=== PATIENT | male | born 1940 | race Caucasian/White ===

== ENCOUNTER → 2019-03-31 | Day surgery (SDC) | payer BC ==
[2019-03-27 11:17] LABS: BASOPHILS # (AUTO) 0.1 (0.0-0.1); BASOPHILS % 0.9 % (0.0-1.0); EOSINOPHILS # (AUTO) 0.3 (0.0-0.4); EOSINOPHILS % 4.9 % (0.0-6.0); HEMATOCRIT 37.5 % (38.2-49.6); HEMOGLOBIN 12.4 g/dL (14.0-18.0); LYMPHOCYTES # (AUTO) 1.3 (1.0-3.2); LYMPHOCYTES % 24.3 % (18.0-39.1); MEAN CORPUSCULAR HGB CONC 33.1 g/dL (31-35); MEAN CORPUSCULAR VOLUME 96.9 fL (81-99); MONOCYTES # (AUTO) 0.6 (0.2-0.8); MONOCYTES % 11.4 % (4.4-11.3); NEUTROPHILS # (AUTO) 3.1 (2.1-6.9); NEUTROPHILS % 56.7 % (38.7-80.0); PLATELET COUNT 136 x10e3/uL (140-360); RED BLOOD COUNT 3.87 x10e6/uL (4.3-5.7); RED CELL DISTRIBUTION WIDTH 14.2 % (11.7-14.4)
[~2019-03-31] MED LIST: ARICEPT5 MG PO; ASPIR 8181 MG PO; ATROPINE SULFATE 1 MG/ML VIAL ONE; BYSTOLIC10 MG PO; BYSTOLIC5 MG PO; CENTRUM SILVER1 EAC1 PO; CLONIDINE HCL0.1 MG PO; CRESTOR10 MG PO; DICLOFENAC PO; DOCUSATE SODIU100 MG PO; EPHEDRINE SULFATE INJ 50 MG/10 ML SYR ONE; EPINEPHRINE HCL 1:1000 1ML 1 MG/ML AMP ONE; FENTANYL CITRATE/PF 100MCG/2 ML INJ ONE; FINASTERIDE5 MG PO; GABAPENTIN300 MG PO; GLUCAGON FOR INJ 1 MG VIAL ONE; HYDROCHLOROTHIA25 MG PO; IMODIUM2 MG PO; IRBESARTAN300 MG PO; KETAMINE HCL INJ 50 MG/ML 10 ML VIAL ONE; LACTULOSE20 GM/30 M PO; LEXAPRO10 MG PO; LIDOCAINE HCL 2% LOCAL INJ 5 ML SDV VIAL INJ ONE; LOVAZA1 GM PO; MUCINEX DM ER1 EACH PO; MULTI-VITAMIN1 EACH PO; NORCO 7.5-3251 EACH PO; NORVASC10 MG PO; OCUVITE LUTEIN1 EACH PO; OCUVITE TABLET1 EAC1 PO; OMEGA 3 1,0001 EACH PO; POTASSIUM CITR10 MEQ PO; PROPOFOL IV EMULSION 10 MG/ML 50 ML VIAL ONE; QUETIAPINE FUM100 MG PO; STRESS B WITH1 EAC2 PO; TRICOR145 MG PO; TYLENOL PO; ULTRAM 50MG50 MG PO; VIT D PO; [UNRECOGNIZED DRUG - OTHER] PO
[2019-03-31 10:00] VITALS: BP 164/84
--- NOTE | 2019-03-31 14:37 | Operative Report ---
DATE OF PROCEDURE: 03/31/2019 SURGEON: Ruiz Feng MD PROCEDURE: Colonoscopy. INDICATION FOR COLONOSCOPY: Surveillance colonoscopy, personal history of colon polyps, history of bright red blood per rectum. MEDICATIONS: The patient was done under MAC, please see anesthesiologist's note. PROCEDURE IN DETAIL: With the patient in left lateral decubitus position, flexible fiberoptic Olympus colonoscope was inserted into the rectum with ease and advanced all the way to the cecum. Prep overall was suboptimal, but visualization was fair. The scope was then withdrawn slowly and whatever was visualized of the mucosa overlying the cecum, ascending colon, transverse, descending, and sigmoid grossly other than for some diverticular disease appeared to be within normal limits. Anastomosis was noted at 30 cm from the anal verge and was intact. The rectum grossly appeared to be within normal limits. The scope was then retroflexed into the distal rectum and small internal hemorrhoids were noted, none of which was actively bleeding. The scope was then straightened out, it was subsequently withdrawn and the anal fissure was noted in way out without active bleeding. The patient tolerated procedure well. IMPRESSION: 1. Suboptimal prep. 2. Diverticulosis. 3. Anastomosis intact at approximately 30 cm from the anal verge. 4. Internal hemorrhoids, none actively bleeding. 5. Anal fissure. PLAN: Initiate high-fiber, low-fat diet. Initiate high-fiber supplement. Start Anucort-HC suppositories b.i.d. x10 days then p.r.n. No followup colonoscopy is necessary. Ruiz Feng MD [facility] [place] /[id number] cc: Ziyad Mederos MD
--- OUTSIDE RECORDS SUMMARY | 2019-04-02 12:12 | XMS REPORT | Clinical Summary ---
Author Author [facility] Address Unknown Phone Unavailable Care Team Providers Care Manager Office Name Role Phone Remy Rodriguez MD PCP Allergies No Known Allergies Medications End Date Status Medication Sig Dispensed Refills Start Date Active cholecalciferol, vitamin Take 2,000 0 D3, (VITAMIN D3) 2,000 Units by unit tablet mouth every morning. Active diclofenac-misoprostol Take 1 tablet 0 (ARTHROTEC 50) 50-200 by mouth 2 mg-mcg EC tablet (two) times a day. Active omega-3 acid ethyl esters Take 1 g by 0 (LOVAZA) 1 gram capsule mouth 2 (two) times a day. Active traMADol (ULTRAM) 50 mg Take 50 mg by 0 tablet mouth 3 (three) times a day. Pt takes at 0800, 1400 and 2000 Active rosuvastatin (CRESTOR) 5 Take 5 mg by 0 MG tablet mouth nightly. Active aspirin 81 mg chewable Take 81 mg by 0 tablet mouth every morning. Active nebivolol (BYSTOLIC) 10 Take 10 mg by 0 MG tablet mouth every morning. Active folic Take 1 tablet 0 acid/multivit-min/lutein by mouth (CENTRUM SILVER ORAL) every morning. Active escitalopram (LEXAPRO) 10 Take 10 mg by 0 MG tablet mouth every morning. Active vit A,C and Take 1 tablet 0 A-xuolcn-egbzhejl by mouth (OCUVITE WITH LUTEIN) every 1,000 unit-200 mg-60 morning. unit-2 mg tablet per tablet Active fluticasone (FLONASE) 50 1 spray by 0 mcg/actuation nasal spray Each Nare route every morning. Active hydroCHLOROthiazide Take 12.5 mg 0 (MICROZIDE) 12.5 mg by mouth capsule every morning. Active gabapentin (NEURONTIN) Take 900 mg 0 300 mg capsule by mouth nightly. Active gabapentin (NEURONTIN) Take 300 mg 0 300 mg capsule by mouth every morning. Active acetaminophen (TYLENOL) Take 1,000 mg 0 500 MG tablet by mouth every 12 (twelve) hours as needed for mild pain. Active clonIDINE (CATAPRES) 0.1 Take 0.1 mg 0 MG tablet by mouth every 6 (six) hours as needed for high blood pressure. If SBP > 170 Active HYDROcodone-acetaminophen Take 1 tablet 0 (NORCO) 7.5-325 mg per by mouth tablet every 6 (six) hours as needed for moderate pain. Active lactulose 10 gram/15 mL Take 10 g by 0 (15 mL) solution mouth every 12 (twelve) hours as needed. Active zolpidem (AMBIEN) 5 MG Take 5 mg by 0 tablet mouth nightly as needed for sleep. Active potassium chloride Take 10 mEq 0 (K-DUR,KLOR-CON) 10 MEQ by mouth CR tablet daily. Active docusate sodium (COLACE) Take 100 mg 0 100 MG capsule by mouth every morning. Active finasteride (PROSCAR) 5 Take 5 mg by 0 mg tablet mouth every morning. Active QUEtiapine (SEROquel) 25 Take 25 mg by 0 MG tablet mouth 2 (two) times a day. Active multivitamin, stress Take 1 tablet 0 formula (STRESS FORMULA) by mouth tablet daily. 07/01/2018 Discontinued celecoxib (CeleBREX) 200 Take 200 mg 0 MG capsule by mouth 2 (two) times a day. 07/01/2018 Discontinued furosemide (LASIX) 20 mg Take 20 mg by 0 tablet mouth every morning. 04/24/2018 cephalexin (KEFLEX) 500 Take 1 40 capsule 0 04/14/201 MG capsule capsule (500 8 mg total) by mouth 4 (four) times a day for 10 days. 07/01/2018 Discontinued tamsulosin (FLOMAX) 0.4 Take 0.4 mg 0 mg capsule by mouth daily. 07/11/2018 cefpodoxime (VANTIN) 200 Take 1 tablet 20 tablet 0 201 MG tablet (200 mg 8 total) by mouth 2 (two) times a day for 10 days. 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 Urinary retention 05/04/2018 Bilateral hydronephrosis 05/04/2018 NABIL (acute kidney injury) 04/12/2018 Encounters Care Team Description Date Type Specialty Jamie Hamilton MD Urinary tract infection associated with indwelling urethral catheter, initial encounter (HCC) (Primary Dx); Complication of Dobbins catheter, initial encounter (HCC) 07/01/2018 Emergency Emergency Medicine Golden Ramos MD Neurogenic bladder (Primary Dx); BPH with urinary obstruction; Urinary retention; Bilateral hydronephrosis 05/04/2018 Office Visit Urology Golden Ramos MD 04/27/2018 Telephone Urology Corrie Ratliff MD Yerramadha, Muralidhar Reddy, MD Pyelonephritis (Primary Dx); NABIL (acute kidney injury); Acute bilateral obstructive uropathy; Pleural effusion; Late onset Alzheimer's disease with behavioral disturbance; Urinary retention due to benign prostatic hyperplasia 04/12/2018 [facility] General Surgery - Encounter 04/14/2018 after 04/01/2018 Social History Date Tobacco Use Types Packs/Day Years Used Never Smoker Smokeless Tobacco: Never Used Alcohol Use Drinks/Week oz/Week Comments No Sex Assigned at Date Recorded Not on file Industry Job Start Date Occupation Not on file Not on file Not on file Travel End Travel History Travel Start No recent travel history available. Last Filed Vital Signs Time Taken Vital Sign Reading 07/01/2018 10:00 PM CDT Blood Pressure 110/56 07/01/2018 10:00 PM CDT Pulse 62 07/01/2018 2:59 PM CDT Temperature 37.1 C (98.8 F) 07/01/2018 10:00 PM CDT Respiratory Rate 18 07/01/2018 10:00 PM CDT Oxygen Saturation 96% - Inhaled Oxygen - Concentration 04/12/2018 9:29 AM CDT Weight 83 kg (183 lb) 07/01/2018 2:59 PM CDT Height 170.2 cm (5' 7") 04/12/2018 9:29 AM CDT Body Mass Index 27.83 Plan of Treatment Health Maintenance Due Date Last Done Comments SHINGLES VACCINES (#1) 12/04/1991 65+ PNEUMOCOCCAL VACCINE 2006 (1 of 2 - PCV13) INFLUENZA VACCINE 04/26/2019 Procedures Comments Procedure Name Priority Date/Time Associated Diagnosis POC GLUCOSE Routine 07/01/2018 6:[address] RENAL STONE PROTOCOL STAT 07/01/2018 6:21 PM CDT XR CHEST 1 VW STAT 07/01/2018 5:56 PM CDT URINALYSIS SCREEN AND STAT 07/01/2018 MICROSCOPY, WITH REFLEX 4:58 PM CDT TO CULTURE GRAM STAIN STAT 07/01/2018 4:58 PM CDT URINE CULTURE STAT 07/01/2018 4:58 PM CDT ESTIMATED GFR STAT 07/01/2018 4:55 PM CDT COMPREHENSIVE METABOLIC STAT 07/01/2018 PANEL 4:55 PM CDT HC COMPLETE BLD COUNT STAT 07/01/2018 W/AUTO DIFF 4:55 PM CDT POC GLUCOSE Routine 04/14/2018 6:09 AM CDT ZZESTIMATED GFR Routine 04/14/2018 5:27 AM CDT HC COMPLETE BLD COUNT Routine 04/14/2018 W/AUTO DIFF 5:27 AM CDT BASIC METABOLIC PANEL Routine 04/14/2018 5:27 AM CDT POC GLUCOSE Routine 04/13/2018 8:37 PM CDT POC GLUCOSE Routine 04/13/2018 4:27 PM CDT POC GLUCOSE Routine 04/13/2018 12:11 PM CDT POC GLUCOSE Routine 04/13/2018 5:42 AM CDT POC GLUCOSE Routine 04/12/2018 8:54 PM CDT POC GLUCOSE Routine 04/12/2018 6:06 PM CDT XR CHEST 1 VW PORTABLE STAT 04/12/2018 12:30 PM CDT URINALYSIS SCREEN AND STAT 04/12/2018 MICROSCOPY, WITH REFLEX 12:15 PM CDT TO CULTURE GRAM STAIN STAT 04/12/2018 12:15 PM CDT URINE CULTURE STAT 04/12/2018 12:[address] RENAL STONE PROTOCOL STAT 04/12/2018 11:06 AM CDT ZZESTIMATED GFR STAT 04/12/2018 9:54 AM CDT COMPREHENSIVE METABOLIC STAT 04/12/2018 PANEL 9:54 AM CDT HC COMPLETE BLD COUNT STAT 04/12/2018 W/AUTO DIFF 9:54 AM CDT after 04/01/2018 Results * POC glucose (07/01/2018 6:48 PM CDT) Only the most recent of 8 results within the time period is included. POC glucose 127 (H) 65 - 99 mg/dL [facility] Comment: DEPARTMENT OF Meter ID: [id number] PATHOLOGY AND Wrapper Layer: Alfredo Cartagena GENOMIC MEDICINE Specimen Performing Organization Address City/State/Zipcode Phone Number [facility] [place] [address] [place] [address] PATHOLOGY AND GENOMIC MEDICINE * CT Renal Stone Protocol (07/01/2018 6:21 PM CDT) Only the most recent of 2 results within the time period is included. Specimen Narrative Performed At Examination: CT RENAL STONE PROTOCOL RADIANT Clinical history: hematuria Comparison: April 12, 2018 Technique: Multiple computerized axial tomographic images were obtained of the abdomen and pelvis without IV or enteric contrast according to renal calculus protocol.Sagittal and coronal computerized reformatted images were also obtained. CT scans are performed using radiation dose reduction techniques.Technical factors are evaluated and adjusted to ensure appropriate moderation of exposure.Automated dose management technology is applied to adjust radiation exposure while achieving a diagnostic quality image. IMPRESSION: Atelectasis is present within the right lung base. The heart is moderately enlarged. Calcified atherosclerotic coronary arterial plaque is present. Abdomen: 1.Mild left and borderline right hydronephrosis and hydroureter have markedly improved since the previous examination and are likely related to the patient's history of previous bladder outlet obstruction, as there is no evidence of renal or ureteral calculus. 2.Limited evaluation of the unenhanced liver, spleen, adrenal glands, and pancreas is otherwise grossly unremarkable, though not considered to diagnostic standards given specialized noncontrast protocol. 3.The pancreatic and biliary ducts are nondilated. The abdominal aorta is normal caliber. The bowel is not dilated, though cannot be formally evaluated given absence of enteric contrast. There appear to be a few loops of nondistended small bowel within the anterior abdomen which demonstrate diffuse wall thickening suggestive of an enteritis, though findings are nonspecific. 4.Anterior abdominal wall hernia repair remains without residual or recurrent hernia. Pelvis: 1. A Dobbins catheter is present within a nondistended bladder. 2. There is no acute osseous pathology. Marked compression deformity of the L3 and L5 vertebral bodies is similar to the prior examination. CONCLUSION: 1. Markedly improved hydronephrosis status post bladder decompression when compared to the previous examination. No evidence of renal or ureteral calculus. 2. Possible enteritis is poorly demonstrated by noncontrast technique. 3. Please see above. [id number] Procedure Note Hm Interface, Radiology Results Incoming - 07/01/2018 6:36 PM CDT Examination: CT RENAL STONE PROTOCOL Clinical history: hematuria Comparison: April 12, 2018 Technique: Multiple computerized axial tomographic images were obtained of the abdomen and pelvis without IV or enteric contrast according to renal calculus protocol.Sagittal and coronal computerized reformatted images were also obtained. CT scans are performed using radiation dose reduction techniques. Technical factors are evaluated and adjusted to ensure appropriate moderation of exposure. Automated dose management technology is applied to adjust radiation exposure while achieving a diagnostic quality image. IMPRESSION: Atelectasis is present within the right lung base. The heart is moderately enlarged. Calcified atherosclerotic coronary arterial plaque is present. Abdomen: 1. Mild left and borderline right hydronephrosis and hydroureter have markedly improved since the previous examination and are likely related to the patient's history of previous bladder outlet obstruction, as there is no evidence of renal or ureteral calculus. 2. Limited evaluation of the unenhanced liver, spleen, adrenal glands, and pancreas is otherwise grossly unremarkable, though not considered to diagnostic standards given specialized noncontrast protocol. 3. The pancreatic and biliary ducts are nondilated. The abdominal aorta is normal caliber. The bowel is not dilated, though cannot be formally evaluated given absence of enteric contrast. There appear to be a few loops of nondistended small bowel within the anterior abdomen which demonstrate diffuse wall thickening suggestive of an enteritis, though findings are nonspecific. 4. Anterior abdominal wall hernia repair remains without residual or recurrent hernia. Pelvis: 1. A Dobbins catheter is present within a nondistended bladder. 2. There is no acute osseous pathology. Marked compression deformity of the L3 and L5 vertebral bodies is similar to the prior examination. CONCLUSION: 1. Markedly improved hydronephrosis status post bladder decompression when compared to the previous examination. No evidence of renal or ureteral calculus. 2. Possible enteritis is poorly demonstrated by noncontrast technique. 3. Please see above. [id number] Performing Organization Address [facility] Phone Number [facility] [address] [place] [address] * XR Chest 1 Vw (07/01/2018 5:56 PM CDT) Specimen Narrative Performed At EXAMINATION: XR CHEST 1 [facility] CLINICAL HISTORY: reported fever COMPARISON:04/12/2018 chest x-ray. IMPRESSION: Unchanged small right greater than left pleural effusions. Bibasilar atelectasis. No consolidation. Mildly enlarged cardiac silhouette. No acute osseous abnormalities. [facility]-[id number] Procedure Note Interface, Radiology Results Incoming - 07/01/2018 6:02 PM CDT EXAMINATION: XR CHEST 1 VW CLINICAL HISTORY: reported fever COMPARISON: 04/12/2018 chest x-ray. IMPRESSION: Unchanged small right greater than left pleural effusions. Bibasilar atelectasis. No consolidation. Mildly enlarged cardiac silhouette. No acute osseous abnormalities. [facility]-[id number] Performing Organization Address [facility] Phone Number [facility] [address] [place] [address] * Urinalysis screen and microscopy, with reflex to culture (07/01/2018 4:58 PM CDT) Only the most recent of 2 results within the time period is included. Specimen site Catheterized [facility] DEPARTMENT OF PATHOLOGY AND GENOMIC MEDICINE Color, UA Yellow [facility] DEPARTMENT OF PATHOLOGY AND GENOMIC MEDICINE Appearance, UA Cloudy [facility] DEPARTMENT OF PATHOLOGY AND GENOMIC MEDICINE Specific 1.009 1.001 - 1.035 [facility] gravity, DEPARTMENT OF PATHOLOGY AND GENOMIC MEDICINE pH, UA 6.0 5.0 - 8.5 [facility] DEPARTMENT OF PATHOLOGY AND GENOMIC MEDICINE Protein, UA 2+ (A) Negative [facility] DEPARTMENT OF PATHOLOGY AND GENOMIC MEDICINE Glucose, UA Negative Negative [facility] DEPARTMENT OF PATHOLOGY AND GENOMIC MEDICINE Ketones, UA Negative Negative [facility] DEPARTMENT OF PATHOLOGY AND GENOMIC MEDICINE Bilirubin, UA Negative Negative [facility] DEPARTMENT OF PATHOLOGY AND GENOMIC MEDICINE Blood, UA Moderate (A) Negative [facility] DEPARTMENT OF PATHOLOGY AND GENOMIC MEDICINE Nitrite, UA Negative Negative [facility] DEPARTMENT OF PATHOLOGY AND GENOMIC MEDICINE Urobilinogen, Negative <2.0 [facility] DEPARTMENT OF PATHOLOGY AND GENOMIC MEDICINE Leukocyte Large (A) Negative [facility] esterase, DEPARTMENT OF PATHOLOGY AND GENOMIC MEDICINE WBC, UA 61-80 (H) 0 - 1 /HPF [facility] DEPARTMENT OF PATHOLOGY AND GENOMIC MEDICINE RBC, UA 61-80 (H) 0 - 5 /HPF [facility] DEPARTMENT OF PATHOLOGY AND GENOMIC MEDICINE Bacteria, UA Trace None seen [facility] DEPARTMENT OF PATHOLOGY AND GENOMIC MEDICINE Yeast, UA None seen [facility] DEPARTMENT OF PATHOLOGY AND GENOMIC MEDICINE Yeast with None seen [facility] pseudohyphae, DEPARTMENT OF UA PATHOLOGY AND GENOMIC MEDICINE Specimen Urine Performing Organization Address City/[facility]/Zipcode Phone Number [facility] [place] [address] [place] [address] PATHOLOGY AND GENOMIC MEDICINE * Gram stain (07/01/2018 4:58 PM CDT) Only the most recent of 2 results within the time period is included. Gram stain Many WBC's [facility] DEPARTMENT result Occasional Gram positive cocci OF PATHOLOGY in pairs AND GENOMIC Comment: MEDICINE Specimen Information Specimen Source: Urine Specimen Site: Catheterized Specimen Urine - Catheterized Performing Organization Address City/State/Zipcode Phone Number [facility] DEPARTMENT OF [address] [place] [address] PATHOLOGY AND GENOMIC MEDICINE * Urine culture (07/01/2018 4:58 PM CDT) Only the most recent of 2 results within the time period is included. Urine culture Mixed Gram positive miriam [facility] DEPART[facility] isolate 10-3 cfu/ml OF PATHOLOGY (A) AND GENOMIC Comment: MEDICINE Specimen Information Specimen Source: Urine Specimen Site: Catheterized Specimen Urine - Catheterized Performing Organization Address City/State/Zipcode Phone Number [facility] DEPARTMENT OF [address] [place] [address] PATHOLOGY AND GENOMIC MEDICINE * Estimated GFR (07/01/2018 4:55 PM CDT) [facility] Estimated GFR 48 (A) mL/min/1.73 m2 [facility] Comment: [facility] AND rpretation GENOMIC MEDICINE >=90 Normal or high G2 60-89Mildly decreased [id number] Mildly to moderately decreased B2h05-58 Moderately to severely decreased G4 15-29Severely decreased G5 <15Kidney failure The eGFR was calculated using the Chronic Kidney Disease Epidemiology Collaboration (CKD-EPI) equation. Interpretation is based on recommendations of the National Kidney Foundation-Kidney Disease Outcomes Quality Initiative (NKF-KDOQI) published in 2014. Specimen Plasma specimen Performing Organization Address City/State/Zipcode Phone Number [facility] [address] [place] [address] PATHOLOGY AND [facility] * CBC with platelet and differential (07/01/2018 4:55 PM CDT) Only the most recent of 3 results within the time period is included. [facility] WBC 11.27 (H) 4.50 - 11.00 k/uL [facility] DEPARTMENT OF PATHOLOGY AND GENOMIC MEDICINE RBC 3.56 (L) 4.40 - 6.00 m/uL [facility] PATHOLOGY AND GENOMIC MEDICINE HGB 11.5 (L) 14.0 - 18.0 g/dL [facility] DEPARTMENT PATHOLOGY AND GENOMIC MEDICINE HCT 34.6 (L) 41.0 - 51.0 % [facility] DEPARTMENT OF PATHOLOGY AND GENOMIC MEDICINE MCV 97.2 82.0 - 100.0 fL [facility] DEPARTMENT OF PATHOLOGY AND GENOMIC MEDICINE MCH 32.3 27.0 - 34.0 pg [facility] DEPARTMENT OF PATHOLOGY AND GENOMIC MEDICINE MCHC 33.2 31.0 - 37.0 g/dL [facility] DEPARTMENT OF PATHOLOGY AND GENOMIC MEDICINE RDW - SD 51.8 37.0 - 55.0 fL [facility] DEPARTMENT OF PATHOLOGY AND GENOMIC MEDICINE MPV 9.5 8.8 - 13.2 fL [facility] DEPARTMENT OF PATHOLOGY AND GENOMIC MEDICINE Platelet count 143 (L) 150 - 400 k/uL [facility] DEPARTMENT OF PATHOLOGY AND GENOMIC MEDICINE Nucleated RBC 0.00 /100 WBC [facility] DEPARTMENT OF PATHOLOGY AND GENOMIC MEDICINE Neutrophils 74.8 (H) 39.0 - 69.0 % [facility] DEPARTMENT OF PATHOLOGY AND GENOMIC MEDICINE Lymphocytes 12.4 (L) 25.0 - 45.0 % [facility] DEPARTMENT OF PATHOLOGY AND GENOMIC MEDICINE Monocytes 9.5 0.0 - 10.0 % [facility] DEPARTMENT OF PATHOLOGY AND GENOMIC MEDICINE Eosinophils 2.0 0.0 - 5.0 % [facility] DEPARTMENT OF PATHOLOGY AND GENOMIC MEDICINE Basophils 0.3 0.0 - 1.0 % [facility] DEPARTMENT OF PATHOLOGY AND GENOMIC MEDICINE Specimen Blood Performing Organization Address City/State/Zipcode Phone Number [facility] [address] [place] [address] PATHOLOGY AND GENOMIC MEDICINE * Comprehensive metabolic panel (07/01/2018 4:55 PM CDT) Only the most recent of 2 results within the time period is included. Sodium 142 135 - 148 mEq/L [facility] DEPARTMENT OF PATHOLOGY AND GENOMIC MEDICINE Potassium 4.1 3.5 - 5.0 mEq/L [facility] DEPARTMENT OF PATHOLOGY AND GENOMIC MEDICINE Chloride 102 98 - 112 mEq/L [facility] DEPARTMENT OF PATHOLOGY AND GENOMIC MEDICINE CO2 27 24 - 31 mEq/L [facility] DEPARTMENT OF PATHOLOGY AND GENOMIC MEDICINE Anion gap 13@ANIO 7 - 15 mEq/L [facility] DEPARTMENT OF PATHOLOGY AND GENOMIC MEDICINE BUN 29 (H) 8 - 23 mg/dL [facility] DEPARTMENT OF PATHOLOGY AND GENOMIC MEDICINE Creatinine 1.40 (H) 0.70 - 1.20 mg/dL [facility] DEPARTMENT OF PATHOLOGY AND GENOMIC MEDICINE Glucose 122 (H) 65 - 99 mg/dL [facility] DEPARTMENT OF PATHOLOGY AND GENOMIC MEDICINE Calcium 9.5 8.8 - 10.2 mg/dL [facility] DEPARTMENT OF PATHOLOGY AND GENOMIC MEDICINE Protein 7.4 6.3 - 8.3 g/dL [facility] Comment: DEPARTMENT OF [place] PATHOLOGY AND 4.6-7.0 g/dL GENOMIC 1 MEDICINE week 4.4-7.6 g/dL 7 months-1year 5.1-7.3 g/dL 1-2 years5.6-7 .5 g/dL >3 years6.0-8 .0 g/dL 18-150 6.3-8.3 g/dL Albumin 4.5 3.5 - 5.0 g/dL [facility] DEPARTMENT OF PATHOLOGY AND GENOMIC [facility] A/G ratio 1.6 0.7 - 3.8 [facility] DEPARTMENT OF PATHOLOGY AND GENOMIC MEDICINE Alkaline 60 40 - 129 U/L [facility] phosphatase DEPARTMENT OF PATHOLOGY AND GENOMIC MEDICINE AST 15 10 - 50 U/L [facility] DEPARTMENT OF PATHOLOGY AND GENOMIC MEDICINE ALT 13 5 - 50 U/L [facility] OF PATHOLOGY AND GENOMIC MEDICINE Total bilirubin 0.5 0.0 - 1.2 mg/dL [facility] DEPARTMENT OF PATHOLOGY AND GENOMIC [facility] Specimen Plasma specimen Performing Organization Address [facility] Phone Number [address] [place] [address] PATHOLOGY [facility] * Estimated GFR (04/14/2018 5:27 AM CDT) Only the most recent of 2 results within the time period is included. [facility] GFR Non Af Amer 37 (A) mL/min/1.73 m2 [facility] OF PATHOLOGY AND GENOMIC MEDICINE GFR Af Amer 45 (A) mL/min/1.73 m2 [facility] Comment: DEPARTMENT OF Chronic kidney disease: <60 PATHOLOGY AND mL/min/1.73m2 GENOMIC Kidney failure: <15 MEDICINE mL/min/1.73m2 The estimated GFR is calculated from the IDMS-traceable Modification of Diet in Renal Disease Equation. The accuracy of the calculation is poor when the creatinine is normal. Calculated values >90 mL/min/1.73m2 are not reported. This equation has not been validated in children (<18 years), women, the elderly (>70 years), or ethnic groups other than Caucasians and Americans. Specimen Plasma specimen Performing Organization Address [facility] Phone Number [address] [place] [address] PATHOLOGY [facility] * Basic metabolic panel (04/14/2018 5:27 AM CDT) [facility] Sodium 141 135 - 148 mEq/L [facility] DEPARTMENT OF PATHOLOGY AND GENOMIC MEDICINE Potassium 3.7 3.5 - 5.0 mEq/L [facility] DEPARTMENT OF PATHOLOGY AND GENOMIC MEDICINE Chloride 104 98 - 112 mEq/L [facility] DEPARTMENT OF PATHOLOGY AND GENOMIC MEDICINE CO2 26 24 - 31 mEq/L [facility] DEPARTMENT OF PATHOLOGY AND GENOMIC MEDICINE Anion gap 11@ANIO 7 - 15 mEq/L [facility] DEPARTMENT OF PATHOLOGY AND GENOMIC MEDICINE BUN 32 (H) 8 - 23 mg/dL [facility] DEPARTMENT OF PATHOLOGY AND GENOMIC MEDICINE Creatinine 1.8 (H) 0.7 - 1.2 mg/dL [facility] DEPARTMENT OF PATHOLOGY AND GENOMIC MEDICINE Glucose 82 65 - 99 mg/dL [facility] DEPARTMENT OF PATHOLOGY AND GENOMIC MEDICINE Calcium 8.4 (L) 8.8 - 10.2 mg/dL [facility] DEPARTMENT OF PATHOLOGY AND GENOMIC MEDICINE Specimen Plasma specimen Performing Organization Address City/State/Zipcode Phone Number [facility] DEPARTMENT [address] [place] [address] PATHOLOGY AND GENOMIC MEDICINE * XR Chest 1 Vw Portable (04/12/2018 12:30 PM CDT) Specimen Narrative Performed At EXAMINATION:XR CHEST 1 VW PORTABLE [facility] CLINICAL HISTORY:R sided pneumonia COMPARISON:None. IMPRESSION: 1.Trace right pleural effusion and likely basilar subsegmental atelectasis versus possible infiltrate. 2.Top normal heart size. 3.No acute osseous abnormality. [id number] Procedure Note Hm Interface, Radiology Results Incoming - 04/12/2018 12:46 PM CDT EXAMINATION: XR CHEST 1 VW PORTABLE CLINICAL HISTORY: R sided pneumonia COMPARISON: None. IMPRESSION: 1. Trace right pleural effusion and likely basilar subsegmental atelectasis versus possible infiltrate. 2. Top normal heart size. 3. No acute osseous abnormality. [id number] Performing Organization Address [facility] Phone Number [facility] [address] [place] [address] after 04/01/2018 Insurance Type Payer Benefit Subscriber ID Effective Phone Address Plan / Dates Group PPO BCBS BCBS xxxxxxxxxxxx 2002-P CHOICE resent PPO/CHARLI L EMPL PPO Medicare MEDICARE MEDICARE xxxxxxxxxx [id number] [facility] PART [facility] resent [address] Advance Directives Patient has advance care planning documents, and code status on file. For more i nformation, please contact: Germain Rodriguez [address] [place] [address] Date Inactivated Comments Code Status Date Activated 04/14/2018 4:32 PM DNR 04/12/2018 2:58 PM Code Status decision reached by: Patient by means of Directive
--- OUTSIDE RECORDS SUMMARY | 2019-04-02 12:13 | XMS REPORT | Continuity of Care Document ---
Author Author [facility] Address Unknown Phone Unavailable Care Team Providers Care Marketing Copywriter Name Role Phone [employer] Information [employer] Specialty Proteins Unavailable Unavailable Problems Problem Status Onset Date Classification Date Reported Comments Source Tuberculosis screening 07/14/2017 Diagnosis 07/14/2017 [facility] Medications Medication Details Route Status Patient Instructions Ordering Provider Order Date Source Amlodipine 10 MG Oral Tablet amlodipine 10 mg tablet TK 1 T PO QD Active [facility] nebivolol 10 MG Oral Tablet [Bystolic] Bystolic 10 mg tablet TK 1 T PO QD Active [facility] Rosuvastatin calcium 5 MG Oral Tablet rosuvastatin 5 mg tablet TK 1 T PO QD HS Active [facility] Purified Protein Derivative of Tuberculin 50 UNT/ML Injectable Solution [Tubersol] Tubersol 5 tub. unit/0.1 mL intradermal injection solution Inject 0.1 mL by intradermal route. Active [facility] Allergies, Adverse Reactions, Alerts No Known Medication Allergies Immunizations No Data Provided for This Section Results No Data Provided for This Section Pathology Reports No Data Provided for This Section Diagnostic Reports No Data Provided for This Section Consultation Notes No Data Provided for This Section Discharge Summaries No Data Provided for This Section History and Physicals No Data Provided for This Section Vital Signs No Data Provided for This Section Encounters Location Location Details Encounter Type Encounter Number Reason For Visit Attending Provider ADM Date DC Date Status Source [place] - [facility] - [id number]_IrmeqounCarla Huntley, [facility]: [address] [place] [address], Ph. [id number] Diamond Huntley 07/14/2017 [facility] Procedures No Data Provided for This Section Assessment and Plan No Data Provided for This Section Plan of Care No Data Provided for This Section Social History No Data Provided for This Section Family History No Data Provided for This Section Advance Directives No Data Provided for This Section Functional Status No Data Provided for This Section
--- OUTSIDE RECORDS SUMMARY | 2019-04-02 12:13 | XMS REPORT | Encounter Summary ---
Author Organization Unknown Address [address] [place] [id number] Phone [phone] Reason for Visit Screening - TB Instructions 1. Tuberculosis screening Tubersol 5 tub. unit/0.1 mL intradermal injection solution PPD (purified protein derivative), skin test - Patient was advised to follow-up with [facility] within 48-72 hours. Discussion Note Pt is in NAD; Verbalizes understanding of all instructions with no questions at this time. Patient educational handouts: No information available. Plan of Care Patient Instructions Return in 48-72 hrs for TB reading. If not, the skin test will be considered invalid and will have to be repeated. In case of emergency call 911 or go to nearest ER Reminders Provider Appointments None recorded. Lab PPD (Purified Protein Derivative), Skin Test 07/14/2017 [facility] Referral None recorded. Procedures None recorded. Surgeries None recorded. Imaging None recorded. Medications Name Start Date amlodipine 10 mg tablet TK 1 T PO QD Bystolic 10 mg tablet TK 1 T PO QD rosuvastatin 5 mg tablet TK 1 T PO QD HS Tubersol 5 tub. unit/0.1 mL intradermal injection solution Inject 0.1 mL by intradermal route. Medications Administered Name Date Tubersol 5 tub. unit/0.1 mL intradermal injection solution Inject 0.1 mL by intradermal route. [id number] Vitals None recorded. Lab Results None recorded. Allergies None recorded. Problems None recorded. Procedures None recorded. Vaccine List None recorded. Social History None recorded. Past Encounters 07/14/2017 Tuberculosis Screening [facility]EV[facility] As[facility]: [address] [place] [address], Ph. History of Present Illness Screening Request - TB Reported By: Patient Screening Request: BCG No prior BCG vaccination. PPD No past history of postive TB skin test (PPD), No previous severe local reaction to TB skin test (PPD). OTHER No prior vaccines within last month Review of Systems Screening - TB Reported By: Patient Symptoms during past year > 2 weeks, NOT associated with specific illness?: unexplained or low grade fever No fever. night sweats No night sweats. unexplained weight loss > 5 lbs No unexplained weight loss. persistent cough No persistent cough. shortness of breath No shortness of breath. coughing up blood (hemoptysis) No coughing up blood (hemoptysis). unusual fatigue No unusual fatigue. loss of appetite No loss of appetite. swollen neck glands No swollen neck glands Physical Exam Screening Reported By: Patient General Appearance: General: well-developed, well-nourished, no acute distress
== END | disposition home or self-care (01) ==
LOC: OR 06:07
PROVIDERS: ATTEND Internal Medicine Gastroenterology
DX: R19.7 Diarrhea, unspecified (principal); K60.2 Anal fissure, unspecified; K57.30 Diverticulosis of large intestine without perforation or abscess without bleeding; Z98.0 Intestinal bypass and anastomosis status; K58.9 Irritable bowel syndrome, unspecified; K64.8 Other hemorrhoids; I10 Essential (primary) hypertension; E78.5 Hyperlipidemia, unspecified; F03.90 Unspecified dementia, unspecified severity, without behavioral disturbance, psychotic disturbance, mood disturbance, and anxiety; Z01.810 Encounter for preprocedural cardiovascular examination; Z01.812 Encounter for preprocedural laboratory examination; Z79.82 Long term (current) use of aspirin; Z86.73 Personal history of transient ischemic attack (TIA), and cerebral infarction without residual deficits
CPT/HCPCS: 36415; 45378; 85025; 93005; J0171; J0461; J1610; J2001; J2704; J3010